=== PATIENT | female | born 1935 | race Caucasian/White ===

== ENCOUNTER 2024-09-25 07:12 | Day surgery (SDC) | payer MEDICARE, SELFPAY ==
[2024-09-24 09:31] VITALS: BMI 25.7
--- NOTE | 2024-09-24 12:45 | EKG_ITS ---
[facility] Test Date: 2024-09-24 Pat Name: LIN GURROLA Department: Room: - Gender: Female Conservation Technician: MARKELL : 1935 Requested By: Matteo Neal Order Number: [id number] Reading MD: Matteo Neal Measurements Intervals [place] Rate: 72 P: PA: QRS: -58 QRSD: 102 T: 110 QT: 337 QTc: 369 Interpretive Statements ATRIAL FIBRILLATION INCOMPLETE RIGHT BUNDLE BRANCH BLOCK [90+ ms QRS DURATION, TERMINAL R IN V1/V2, 40+ ms S IN I/aVL/V4/V5/V6] LEFT ANTERIOR FASCICULAR BLOCK [QRS AXIS <= -45, QR IN I, RS IN II] MODERATE VOLTAGE CRITERIA FOR LVH, CONSIDER NORMAL VARIANT [MEETS CRITERIA IN ONE OF: R(aVL), S(V1), R(V5), R(V5/V6)+S(V1)] POSSIBLE ANTEROSEPTAL MYOCARDIAL INFARCTION , OF INDETERMINATE AGE [30 ms Q WAVE IN V1-V4] No previous ECG available for comparison /store/[email or web address]/[id number]
[2024-09-24 13:27] LABS: Basophils % (Auto) 1 % (0-2.5); Eosinophils # (Auto) 0.4 Thou/mm3 (0.0-0.5); Eosinophils % (Auto) 5 % (0-10); Hematocrit 40.8 % (36.0-46.0); Hemoglobin 13.4 g/dL (12.0-16.0); Immature Granulocytes % (Auto) 0 % (0-0); Immature Granulocytes Auto 0.03 Thou/mm3 (0.00-0.00); Lymphocytes # (Auto) 1.9 Thou/mm3 (1.0-4.8); Lymphocytes % (Auto) 23 % (10-50); Mean Corpuscular HGB Conc 32.8 g/dl (31.0-37.0); Mean Corpuscular Hemoglobin 29.5 pg (25.0-35.0); Mean Corpuscular Volume 90 fL (80-100); Monocytes # (Auto) 1.1 Thou/mm3 (0.0-0.8); Monocytes % (Auto) 13 % (0-12); Neutrophils # (Auto) 4.9 Thou/mm3 (1.8-7.7); Neutrophils % (Auto) 59 % (37-80); Nucleated Red Blood Cell % 0 /100 WBC (0); Platelet Count 218 Thou/mm3 (140-440); RDW Standard Deviation 43.4 fL (36.4-46.3); Red Blood Count 4.55 Miln/mm3 (4.00-5.20); White Blood Count 8.4 Thou/mm3 (3.6-11.0)
[2024-09-24 13:35] LABS: INR 1.1 (0.9-1.3); Partial Thromboplastin Time 27.6 Seconds (22.0-36.0); Prothrombin Time 12.4 Seconds (9.0-12.2)
[2024-09-24 13:41] LABS: Anion Gap 5 (7-16); BUN/Creatinine Ratio 19 Ratio (12-20); Blood Urea Nitrogen 15 mg/dL (9-23); Calcium 10.3 mg/dL (8.3-10.6); Carbon Dioxide 32.1 mMol/L (20.0-31.0); Chloride 104 mMol/L (98-107); Creatinine (Component) 0.8 mg/dL (0.6-1.3); Estimated Creatinine Clearance 40.9 mL/min (>60); Glucose 92 mg/dL (74-106); Osmolality,Calculated 282 (275-295); Potassium 3.7 mMol/L (3.4-5.1); Sodium 141 mMol/L (136-145); eGFR > 60 See Note
[2024-09-25] VITALS (12 sets, daily range): BP systolic 101–161; BP diastolic 48–104; PULSE 50–94; RESP 12–24; TEMP 36.4; O2SAT 92–99
--- NOTE | 2024-09-25 08:30 | ECHO_ITS ---
Transesophageal Echo Report Ht (in): 61 Wt (lb): 136 Exam Location: Echo Lab Status: Preadmit Playground Worker: VENECIA Guido^^^^ Indications: Procedure Performed: BP: 107 / 72 HR: 85 Rhythm: Atrial fibrillation Technical Quality: Good MEASUREMENTS 2D ECHO Aortic Root Diameter 2.5 cm (Male / Female) Normal Values FINDINGS Left Ventricle Normal left ventricular size, wall thickness, systolic function with no obvious regional wall motion abnormalities. Normal left ventricular diastolic filling pattern for age. The ejection fraction is visually estimated at 60-65 %. Right Ventricle The right ventricle is normal in size and systolic function. The estimated right ventricular systolic pressure, 42 mmHg. Left Atrium The left atrium is normal by two-dimensional, color flow and Doppler imaging with no structural abnormalities, no thrombus formation present. Right Atrium The right atrium is normal by two-dimensional imaging, color flow and Doppler imaging with no structural abnormalities, no thrombus formation present. Atrial Appendages The left atrial appendage appears normal with no evidence for thrombus. Atrial Septum The interatrial septum is normal to color flow Doppler and agitated saline imaging. Aorta The aortic root, ascending aorta, aortic arch and descending thoracic aorta are normal to two-dimensional imaging. Mitral Valve Moderate mitral regurgitation. Aortic Valve Mild aortic valve stenosis. Mild aortic valve regurgitation. Tricuspid Valve There is mild to moderate tricuspid valve regurgitation. Pulmonic Valve The pulmonic valve is normal by two-dimensional, color flow and Doppler interrogation. There is no significant pulmonic valve regurgitation. Vessels The pulmonary artery appears normal. The inferior vena cava pulmonary and hepatic veins appear normal. Pericardium The pericardium is normal by two-dimensional imaging. There is no significant pericardial effusion. CONCLUSIONS Indication: Paroxysmal atrial fibrillation and precardioversion No LA or CHRISSY thrombus. No PFO or ASD. Bubble study negative Normal LV size and function. Estimated EF 55 to 60%. Normal RV size and function. Moderately dilated RA. Moderate TR Severely dilated LA. Moderate MR. Systolic blunting of pulmonary vein flow Mild aortic stenosis. Matteo Neal (Electronically Signed) Final Date: 25 September 2024 21:40
[2024-09-25] MEDS: BENZOCAINE 20% (Hurricaine) SPRAY 1 DOSE TOP (09:36)
[2024-09-25] MEDS: SODIUM CHLORIDE 0.9% 500 ML 500 ML 30 ML IV (09:36)
[2024-09-25] MEDS: MIDAZOLAM INJ 1 MG/ML VIAL 2 ML 3.5 MG IV (09:37)
[2024-09-25] MEDS: fentaNYL CIT INJ 50 mCg/ML AMP 2ML 25 MCG IVP (09:37)
--- NOTE | 2024-09-25 10:15 | PD.CARDOPNOT ---
Procedure Direct current cardioversion for uncontrolled atrial fibrillation Moderate Conscious Sedation with Versed and Fentanyl Date of Procedure 09/25/24 Pre Op Diagnosis Paroxysmal Atrial Fibrillation Indication Paroxysmal Atrial Fibrillation Post Op Diagnosis Normal Sinus Rhythm restored. Procedure Description Patient was in atrial fibrillation and ventricular rate was controlled came in for elective cardioversion as patient was having significant symptoms for the Afib. Decision was made to perform cardioversion for the patient after performing a transesophageal echocardiogram. Transesophageal echocardiogram was completed today and did not show any significant LA or CHRISSY thrombus.? Please see SHUBHAM report from today for rest of the findings.? Patient was already on anticoagulation with eliquis.. Patient was taken to the medical laboratory assistant for the SHUBHAM and cardioversion, both anterior and posterior pads were placed.? Patient was given moderate sedation and received a total of 3.5 mg of Versed and 25 mcg of fentanyl prior to the procedure to provide him enough for sedation. A biphasic defibrillator was used.? A single 120 J synchronized shock was given and the patient converted successfully into normal sinus rhythm.? No complications during or after the procedure.? Patient is doing well.? His heart rate was stable between 50 to 70 bpm and appears to be normal sinus rhythm on the telemetry.? Recommend to perform an EKG to document normal sinus rhythm postprocedure.? Patient will be monitored in the medical laboratory assistant for the next 1-2 hours and will be discharged home if hemodynamically stable. Will adjust his medications for atrial fibrillation as outpatient. Estimated Blood Loss 0 Specimen(s) Specimen(s): None Conclusion Successful direct current cardioversion of Atrial Fibrillation / Flutter to Normal Sinus Rhythm Recommendation Recommend to decrease metoprolol XL 50 mg Q Day if BP stable. Continue Eliquis 2.5 mg BID for anticaogulation. EKG to documen NSR post procedure. No driving for 24 hours. Patient recommended to follow up in 1 week in the clinic. Surgical Staff Surgeon: Matteo Neal MD
== END 2024-09-25 11:36 | disposition home or self-care (01) ==
LOC: S2EX 08:04 → SCCL 09-26 13:33
PROVIDERS: PCP Registered Nurse; Referring Provider Internal Medicine Cardiovascular Disease; Visit Provider Internal Medicine Cardiovascular Disease
PROC: 5A2204Z Restoration of Cardiac Rhythm, Single (ICD-10-PCS; CPT 92960; principal; 2024-09-25 08:30)
DX: I48.0 Paroxysmal atrial fibrillation (principal); Z01.810 Encounter for preprocedural cardiovascular examination
CPT/HCPCS: 92960; 36415; 80048; 85025; 85610; 85730; 93005; 93312; 99152; J2250; J3010; J7040; A9270

== ENCOUNTER 2024-12-23 18:01 | Emergency (ER) | payer MEDICARE, SELFPAY ==
[2024-12-23 18:03] VITALS: BMI 24.7
[2024-12-23 19:07] VITALS: BP 174/82; PULSE 75; RESP 18; TEMP 37.1; O2SAT 95
[2024-12-23] MEDS: DIPHTH,PERTUSS(ACELL),TET VAC 0.5 ML SYR- ADULT IMi (20:01)
--- NOTE | 2024-12-23 22:44 | PD.EDWOUND ---
ED Wound/Laceration-RME/HPI General Chief Complaint: Wound/Laceration Stated Complaint: LEFT HAND LAC Time Seen by Provider: 12/23/24 19:20 Arrival date/time: 12/23/24 18:01 RME / HPI RME / HPI narrative: 89-year-old female presents to the ED with a complaint of several lacerations to her left hand after a small [place] cabinet fell over onto her causing lacerations after the glass broke. She denies any loss of consciousness. She denies any neck pain, numbness or tingling to her extremities. She is on Eliquis and aspirin for atrial fibrillation. Related Data Home Medications ?Medication ?Instructions ?Recorded ?Confirmed atorvastatin 10 mg tablet 10 mg PO QPM 08/07/23 09/25/24 lisinopril 2.5 mg tablet 2.5 mg PO QDAY 08/07/23 09/25/24 triamterene 37.5 1 cap PO QAM 08/07/23 09/25/24 mg-hydrochlorothiazide 25 mg capsule zinc 50 mg capsule 50 mg PO QDAY 08/07/23 09/25/24 apixaban 2.5 mg tablet (Eliquis) 2.5 mg PO BID 09/25/24 09/25/24 aspirin 81 mg capsule 81 mg PO QDAY 09/25/24 09/25/24 mecobalamin (vitamin B12) 1,000 600 mcg PO QDAY 09/25/24 09/25/24 mcg chewable tablet (B12 Active) Previous Rx's ?Medication ?Instructions ?Recorded metoprolol succinate 50 mg 50 mg PO QDAY #1 tab 09/25/24 tablet,extended release 24 hr Allergies Allergy/AdvReac Type Severity Reaction Status Date / Time codeine Allergy Mild Vomiting Verified 09/24/24 09:28 walnut Allergy rash Verified 09/24/24 09:30 dates Allergy Rash Uncoded 09/24/24 09:30 Course Course Course Narrative: Wound closure with number three 5-0 nylon sutures to the left index finger and number two 5-0 nylon sutures to the left ring finger with good wound edge approximation. Hemostasis obtained. Patient tolerated procedure well. Antibiotic ointment, a nonadherent dressing as well as Kerlix gauze was utilized. Patient was discharged home in stable and improved condition. Orders Category Date Time Status Set Up Suture Tray STAT Care 12/23/24 19:38 Active TDap [Obtain Tdap Consent] X1 Care 12/23/24 19:38 Active Wound Care NOW Care 12/23/24 22:43 Active TET,DIP/PERT AC (Adult)-Tdap [Boostrix Adult (Tdap) Med 12/23/24 19:38 Discontinued Vacc] 0.5 ml IMI .ONCE ONE Vital Signs Vital signs: Vital Signs Temperature 98.8 F 12/23/24 19:07 Pulse Rate 75 12/23/24 19:07 Respiratory Rate 18 12/23/24 19:07 Blood Pressure 174/82 H 12/23/24 19:07 Pulse Oximetry (%) 95 12/23/24 19:07 Oxygen Delivery Method Room Air 12/23/24 19:07 Wound / Laceration Medications / Prescriptions Medication administrations:: Medication Administration History Discontinued Medications Diphtheria/Tetanus/Acell Pertussis (Diphth,Pertuss(Acell),Tet Vac 0.5 Ml Syr- Adult) 0.5 ml IMi .ONCE ONE Stop: 12/23/24 19:39 Last Admin: 12/23/24 20:01 Dose: 0.5 ml Documented By: EF Discharge Plan Plan Patient Disposition: HOME (Self Care) Discharge Disposition comment: Stable and improved Prescriptions/Referrals Prescriptions/Med Rec: No Action aspirin 81 mg capsule 81 mg PO QDAY mecobalamin (vitamin B12) [B12 Active] 1,000 mcg tablet,chewable 600 mcg PO QDAY Eliquis 2.5 mg tablet 2.5 mg PO BID metoprolol succinate 50 mg tablet extended release 24 hr 50 mg PO QDAY Qty: 1 0RF atorvastatin 10 mg Tablet 10 mg PO QPM triamterene-hydrochlorothiazid 37.5-25 mg Capsule 1 cap PO QAM lisinopril 2.5 mg Tablet 2.5 mg PO QDAY zinc 50 mg Capsule 50 mg PO QDAY Referrals: No Primary/Family,Physician [Primary Care Provider] - In 1 week Problem List Clinical Impression: Laceration, Avulsion of skin Patient/Caregiver Discharge Instructions Education Materials: ED Laceration, Hand: All Closures Additional Instructions: Keep the wounds clean and dry, do not expose them to excessive amounts of moisture. Cleanse daily and apply antibiotic ointment and a clean dressing. Suture removal in 7 to 10 days. Return to the emergency department for any new or worsening symptoms. Print Language: Hebrew Stand Alone Forms: Olga Award Info., Patient Portal Info Letter Vaccines Vaccines Given During Stay: TDaP PA/ANTENNA ENGINEER Supervising Physician PA/ANTENNA ENGINEER Supervising Physician: Dr. Rain
[2024-12-23 23:04] VITALS: BP 157/86; PULSE 82; RESP 18; TEMP 36.6; O2SAT 95
== END 2024-12-23 23:05 | disposition home or self-care (01) ==
PROVIDERS: Emergency Provider Emergency Medicine
DX: S61.412A Laceration without foreign body of left hand, initial encounter (principal); W25.XXXA Contact with sharp glass, initial encounter; Z23 Encounter for immunization
CPT/HCPCS: 12001; 90471; 90715; 99283

== ENCOUNTER → 2025-01-29 | Outpatient (CLI) | payer MEDICARE, SELFPAY ==
--- NOTE | 2025-01-29 09:45 | XR_ITS ---
Examination: Screening digital mammography, bilateral Computer aided detection 3-D breast Tomosynthesis, bilateral Date and time of exam: January 29, 2025 0916 hours Compared to mammograms dating to December 05, 2022 Indication: Screening Technique: Nonmagnified MLO, CC views of the breasts to been obtained, reconstructed from 3-D Tomosynthesis images. R2 computer aided detection program utilized for evaluation of suspicious masses and/or abnormal calcifications. 3-D Tomosynthesis images obtained. Findings: Decreased left breast volume and extensive architectural distortion again noted consistent with treated left breast cancer Breast biopsy marker nipple level right breast Extensive benign calcifications. No interval suspicious masses Impression: BI-RADS Category 0: Incomplete assessment Please see the left breast sonography report January 10, 2023 with multiple nodules, recommend repeat left breast sonography to compare with this study
[2025-01-29 10:01] LABS: Collection Type, Urine Clean Catch
[2025-01-29 10:37] LABS: Basophils # (Auto) 0.0 Thou/mm3 (0.0-0.2); Basophils % (Auto) 1 % (0-2.5); Eosinophils # (Auto) 0.2 Thou/mm3 (0.0-0.5); Eosinophils % (Auto) 3 % (0-10); Hematocrit 41.9 % (36.0-46.0); Hemoglobin 14.0 g/dL (12.0-16.0); Immature Granulocytes Auto 0.02 Thou/mm3 (0.00-0.00); Lymphocytes # (Auto) 1.9 Thou/mm3 (1.0-4.8); Lymphocytes % (Auto) 24 % (10-50); Mean Corpuscular HGB Conc 33.4 g/dl (31.0-37.0); Mean Corpuscular Hemoglobin 30.6 pg (25.0-35.0); Mean Corpuscular Volume 92 fL (80-100); Monocytes # (Auto) 1.0 Thou/mm3 (0.0-0.8); Monocytes % (Auto) 13 % (0-12); Neutrophils # (Auto) 4.7 Thou/mm3 (1.8-7.7); Neutrophils % (Auto) 60 % (37-80); Nucleated Red Blood Cell # 0.00 Thou/mm3 (0.00-0.00); Nucleated Red Blood Cell % 0 /100 WBC (0); Platelet Count 218 Thou/mm3 (140-440); RDW Standard Deviation 47.9 fL (36.4-46.3); Red Blood Count 4.58 Miln/mm3 (4.00-5.20); White Blood Count 7.8 Thou/mm3 (3.6-11.0)
[2025-01-29 10:42] LABS: Glucose Estimated Average 114 mg/dL (80-131); Hemoglobin A1C 5.6 % Hgb (4.8-6.0)
[2025-01-29 10:47] LABS: Bacteria,Urine Rare; Bilirubin,Urine Negative (Negative); Blood,Urine Negative (Negative); Clarity,Urine Clear (Clear/Hazy); Color,Urine Yellow (Lt Yel-Yel); Glucose, Urine Negative (Negative); Hyaline Casts,Urine < 1 /hpf (0-1); Ketones,Urine Negative (Negative); Leukocyte Esterase,Urine Positive (Negative); Nitrite,Urine Negative (Negative); PH,Urine 7.0 (5.0-7.0); Protein,Urine Negative (Neg - Trace); RBC,Urine 1 /hpf (0-3); Specific Gravity,Urine 1.013 (1.001-1.035); Squamous Epithelial Cell,Urine < 1 /hpf (0-5); Urobilinogen,Urine Negative mg/dL (0.0-1.0); WBC,Urine 14 /hpf (0-5)
[2025-01-29 10:53] LABS: Culture Indicated,Urine Yes
[2025-01-29 10:57] LABS: Vitamin D 25 Hydroxy Total 67.1 ng/mL (7.3-40.2)
[2025-01-29 10:59] LABS: Alanine Aminotransferase 40 U/L (10-49); Albumin, Serum 4.6 gm/dL (3.4-4.8); Albumin/Globulin Ratio 1.6 (1.2-2.2); Alkaline Phosphatase 101 U/L (46-116); Anion Gap 11 (7-16); Aspartate Amino Transferase 38 U/L (0-34); BUN/Creatinine Ratio 14 Ratio (12-20); Bilirubin,Total 0.9 mg/dL (0.3-1.2); Blood Urea Nitrogen 13 mg/dL (9-23); Calcium 10.5 mg/dL (8.3-10.6); Calcium (Corrected) 10.5 mg/dL (8.5-10.1); Carbon Dioxide 29.2 mMol/L (20.0-31.0); Cardiac Risk Estimate 2.3 RATIO (3.7-5.6); Chloride 101 mMol/L (98-107); Cholesterol 150 mg/dL (132-200); Creatinine (Component) 0.9 mg/dL (0.6-1.3); Globulin 2.8 gm/dL (2.3-3.5); Glucose 100 mg/dL (74-106); HDL Cholesterol 65 mg/dL (40-60); LDL Cholesterol,Calculated 58 mg/dL (0-130); Osmolality,Calculated 281 (275-295); Potassium 3.5 mMol/L (3.4-5.1); Sodium 141 mMol/L (136-145); Thyroid Stimulating Hormone 3.54 uIU/mL (0.55-4.78); Total Protein 7.4 gm/dL (5.7-8.2); Triglycerides 134 mg/dL (30-150); eGFR > 60 See Note
== END | disposition home or self-care (01) ==
LOC: CDIM 09:12 → COPL 09:25 → CDIM 02-10 12:45
PROVIDERS: PCP Registered Nurse; Referring Provider Registered Nurse; Visit Provider Registered Nurse
DX: Z12.31 Encounter for screening mammogram for malignant neoplasm of breast (principal); R92.8 Other abnormal and inconclusive findings on diagnostic imaging of breast; I10 Essential (primary) hypertension; Z00.00 Encounter for general adult medical examination without abnormal findings; E78.2 Mixed hyperlipidemia
CPT/HCPCS: 36415; 77063; 77067; 80053; 80061; 81001; 82306; 83036; 84443; 85025; 87077; 87086; 87186